=== PATIENT | male | born 1950 | race Two or more races ===

== ENCOUNTER 2021-02-24 09:39 | Inpatient (IN) ==
[2021-02-24] MEDS ORDERED: methylPREDNISolone SOD SUC 125 MG/2 ML VIAL IV STA (10:13)
[2021-02-24 10:37] LABS: Basophils # 0.1 10*3/uL (0.0-0.2); Basophils % 0.6 % (0.0-0.8); Eosinophils % 0.5 % (0.00-10.9); Hemoglobin 13.8 GM/DL (14.0-18.0); Immature Granulocytes % 0.5 %; Immature Granulocytes Absolute 0.04 #; Lymphocytes # 1.2 10*3/uL (1.4-4.0); Lymphocytes % 14.7 % (21.2-54.2); Mean Corpuscular HGB Conc 32.1 GM/DL (32-36); Mean Corpuscular Volume 96.8 FL (87-102); Mean Platelet Volume 9.7 FL (9.6-12.0); Monocytes % 11.4 % (1.7-12.7); Neutrophils % 72.3 % (38.7-73.9); Platelet Count 325 T/CUMM (130-400); Red Blood Count 4.44 MC/CUMM (3.8-5.5); Red Cell Distribution Width 14.8 % (9.3-17.3); White Blood Count 8.1 T/CUMM (4-12)
[2021-02-24 11:10] LABS: PT Patient Result 11.6 SECS (10.5-12.0); Partial Thromboplastin Time 29.3 SECS (23.8-32.1)
[2021-02-24] MEDS ORDERED: RACEPINEPHRINE 0.5 ML NEB RESP TX STA (11:14)
[2021-02-24 11:17] LABS: Osmolality,Calculated 283.1 MOS/KG (273-304); Potassium 5.1 MMOL/L (3.5-5.1)
[2021-02-24] MEDS ORDERED: DEXTROSE 50% 25 GM/50 ML SYRINGE IV PRN (15:34)
[2021-02-24] MEDS ORDERED: GLUCAGON 1 MG VIAL IM PRN (15:34)
[2021-02-24] MEDS ORDERED: MORPHINE 2 MG/1 ML SYRINGE IV PRN (15:38)
[2021-02-24] MEDS ORDERED: ONDANSETRON 4 MG/2 ML VIAL IV PRN (15:38)
[2021-02-24] MEDS: RACEPINEPHRINE 0.5 ML NEB RESP TX SCH ×2 (17:30→19:10)
[2021-02-24] MEDS: DEXTROSE 5% NACL 0.45% 1,000 ML IV SCH (19:52)
[2021-02-24] MEDS ORDERED: ENOXAPARIN 40 MG/0.4 ML SYRINGE SUBCUT SCH (21:00)
[2021-02-25] MEDS: RACEPINEPHRINE 0.5 ML NEB RESP TX SCH ×4 (00:10→20:18)
[2021-02-25] MEDS: DEXTROSE 5% NACL 0.45% 1,000 ML IV SCH ×3 (05:05→18:17)
[2021-02-25 06:53] LABS: Hematocrit 38.5 VOL% (42.0-52.0); Hemoglobin 12.6 GM/DL (14.0-18.0); Immature Granulocytes % 0.4 %; Immature Granulocytes Absolute 0.03 #; Lymphocytes % 14.6 % (21.2-54.2); Mean Corpuscular HGB Conc 32.7 GM/DL (32-36); Mean Corpuscular Volume 93.7 FL (87-102); Mean Platelet Volume 10.1 FL (9.6-12.0); Monocytes % 4.9 % (1.7-12.7); Neutrophils % 80.1 % (38.7-73.9); Platelet Count 383 T/CUMM (130-400); Red Blood Count 4.11 MC/CUMM (3.8-5.5); Red Cell Distribution Width 14.8 % (9.3-17.3)
[2021-02-25 07:01] LABS: Bilirubin,Total 0.7 MG/DL (0.20-1.00); Calcium 10.4 MG/DL (8.5-10.1); Osmolality,Calculated 279.5 MOS/KG (273-304); Potassium 3.7 MMOL/L (3.5-5.1); Risk Ratio 3.09; Total Protein 7.1 G/DL (6.4-8.2); VLDL Cholesterol 15.4 MG/DL
[2021-02-25] MEDS: PANTOPRAZOLE 40 MG TABLET PO SCH (09:28)
[2021-02-25] MEDS: NICOTINE 21 MG/24 HR PATCH TRANSDERM SCH (09:29)
[2021-02-26] MEDS: RACEPINEPHRINE 0.5 ML NEB RESP TX SCH ×4 (01:28→19:40)
[2021-02-26] MEDS: DEXTROSE 5% NACL 0.45% 1,000 ML IV SCH ×3 (02:17→17:47)
[2021-02-26 05:32] LABS: Bilirubin,Urine Negative (Negative); Blood, Urine Negative (Negative); Glucose,Urine (UA) Negative (Negative); Ketones,Urine Negative (Negative); Mucus,Urine Occasional /LPF (Occasional); Nitrite,Urine Negative (Negative); Protein,Urine Negative; RBC,Urine 2 /HPF (0-4); Squamous Epithelial Cell,Urine Occasional /HPF (0-10); Urine Appearance CLEAR (Clear); Urine Color Yellow (Yellow); Urine Specific Gravity 1.046 (1.001-1.035)
[2021-02-26 05:43] LABS: Basophils % 0.2 % (0.0-0.8); Eosinophils % 0.1 % (0.00-10.9); Hematocrit 40.9 VOL% (42.0-52.0); Hemoglobin 13.1 GM/DL (14.0-18.0); Immature Granulocytes % 0.3 %; Immature Granulocytes Absolute 0.03 #; Lymphocytes # 1.4 10*3/uL (1.4-4.0); Lymphocytes % 12.4 % (21.2-54.2); Mean Corpuscular Volume 95.3 FL (87-102); Mean Platelet Volume 11.1 FL (9.6-12.0); Monocytes % 11.2 % (1.7-12.7); Neutrophils % 75.8 % (38.7-73.9); Platelet Count 334 T/CUMM (130-400); Red Blood Count 4.29 MC/CUMM (3.8-5.5); Red Cell Distribution Width 15.2 % (9.3-17.3); White Blood Count 10.9 T/CUMM (4-12)
[2021-02-26 05:57] LABS: Calcium 10.5 MG/DL (8.5-10.1); Osmolality,Calculated 277.5 MOS/KG (273-304); Potassium 3.7 MMOL/L (3.5-5.1)
[2021-02-26] MEDS ORDERED: BUPIVACAINE MPF 0.25% 30 ML VIAL ONE (08:34)
[2021-02-26] MEDS ORDERED: LIDOCAINE 1%/EPI INJ 20 ML VIAL ONE (08:34)
[2021-02-26] MEDS: PANTOPRAZOLE 40 MG TABLET PO SCH ×2 (10:29→10:31)
[2021-02-26] MEDS: NICOTINE 21 MG/24 HR PATCH TRANSDERM SCH (10:31)
[2021-02-27] MEDS: RACEPINEPHRINE 0.5 ML NEB RESP TX SCH ×3 (00:12→15:50)
[2021-02-27] MEDS: DEXTROSE 5% NACL 0.45% 1,000 ML IV SCH ×3 (01:05→19:26)
[2021-02-27] MEDS ORDERED: BUPIVACAINE MPF 0.25% 30 ML VIAL ONE (06:25)
[2021-02-27] MEDS ORDERED: LIDOCAINE 1%/EPI INJ 20 ML VIAL ONE ×2 (06:25→06:47)
[2021-02-27 06:30] LABS: Basophils % 0.4 % (0.0-0.8); Eosinophils % 0.2 % (0.00-10.9); Hemoglobin 13.7 GM/DL (14.0-18.0); Immature Granulocytes % 0.3 %; Immature Granulocytes Absolute 0.03 #; Lymphocytes # 1.4 10*3/uL (1.4-4.0); Lymphocytes % 15.2 % (21.2-54.2); Mean Corpuscular HGB Conc 32.6 GM/DL (32-36); Mean Corpuscular Volume 94.2 FL (87-102); Monocytes % 11.9 % (1.7-12.7); Platelet Count 396 T/CUMM (130-400); Red Blood Count 4.46 MC/CUMM (3.8-5.5); Red Cell Distribution Width 14.7 % (9.3-17.3); White Blood Count 9.2 T/CUMM (4-12)
[2021-02-27] MEDS ORDERED: fentaNYL 100 MCG/2 ML VIAL ONE (06:46)
[2021-02-27] MEDS ORDERED: KETAMINE 500 MG/10 ML VIAL ONE (06:46)
[2021-02-27] MEDS ORDERED: MIDAZOLAM 2 MG/2 ML VIAL ONE (06:48)
[2021-02-27] MEDS ORDERED: propofoL 200 MG/20 ML VIAL IV ONE (06:49)
[2021-02-27] MEDS ORDERED: GLYCOPYRROLATE 0.4 MG/2 ML VIAL ONE (06:49)
[2021-02-27] MEDS ORDERED: LIDOCAINE 2% 5 ML VIAL ONE (06:49)
[2021-02-27 06:58] LABS: Calcium 10.2 MG/DL (8.5-10.1); Osmolality,Calculated 280.1 MOS/KG (273-304); Potassium 3.5 MMOL/L (3.5-5.1)
[2021-02-27] MEDS ORDERED: LIDOCAINE 4% TOP SOLN 50 ML BOTTLE ONE (07:12)
[2021-02-27] MEDS ORDERED: SEVOFLURANE 1 UNIT/15 MINUTE INH ONE (07:48)
[2021-02-27] MEDS ORDERED: ONDANSETRON 4 MG/2 ML VIAL ONE (07:48)
[2021-02-27] MEDS ORDERED: DEXAMETHASONE 4 MG/1 ML VIAL ONE (07:48)
[2021-02-27] MEDS ORDERED: TISSUE ADHESIVE 1 EACH APPLICATOR TOP ONE (08:30)
[2021-02-27] MEDS ORDERED: SUCCINYLCHOLINE 200 MG/10 ML VIAL ONE (08:38)
[2021-02-27] MEDS: PANTOPRAZOLE 40 MG TABLET PO SCH (09:59)
[2021-02-27] MEDS: NICOTINE 21 MG/24 HR PATCH TRANSDERM SCH (10:15)
[2021-02-28] MEDS: DEXTROSE 5% NACL 0.45% 1,000 ML IV SCH ×3 (03:40→20:21)
[2021-02-28 04:26] LABS: Basophils % 0.1 % (0.0-0.8); Hematocrit 40.1 VOL% (42.0-52.0); Hemoglobin 13.2 GM/DL (14.0-18.0); Immature Granulocytes % 0.4 %; Immature Granulocytes Absolute 0.05 #; Lymphocytes # 0.9 10*3/uL (1.4-4.0); Lymphocytes % 6.9 % (21.2-54.2); Mean Corpuscular HGB Conc 32.9 GM/DL (32-36); Mean Corpuscular Volume 92.8 FL (87-102); Monocytes % 9.3 % (1.7-12.7); Neutrophils % 83.3 % (38.7-73.9); Platelet Count 367 T/CUMM (130-400); Red Blood Count 4.32 MC/CUMM (3.8-5.5); Red Cell Distribution Width 14.4 % (9.3-17.3); White Blood Count 12.3 T/CUMM (4-12)
[2021-02-28 04:44] LABS: Calcium 9.8 MG/DL (8.5-10.1); Osmolality,Calculated 279.3 MOS/KG (273-304); Potassium 3.4 MMOL/L (3.5-5.1)
[2021-02-28] MEDS ORDERED: POTASSIUM CHLORIDE RIDER 20 MEQ/100 ML PREMIX IV PRN (05:46)
[2021-02-28] MEDS ORDERED: POTASSIUM CHLORIDE RIDER 10 MEQ/100 ML PREMIX IV PRN (05:50)
[2021-02-28] MEDS: OMEPRAZOLE ODT 20 MG TABLET PER TUBE SCH (09:30)
[2021-02-28] MEDS: NICOTINE 21 MG/24 HR PATCH TRANSDERM SCH (09:30)
[2021-03-01] MEDS: DEXTROSE 5% NACL 0.45% 1,000 ML IV SCH ×2 (03:26→17:15)
[2021-03-01 05:00] LABS: Basophils % 0.1 % (0.0-0.8); Eosinophils % 0.3 % (0.00-10.9); Hematocrit 39.2 VOL% (42.0-52.0); Hemoglobin 12.7 GM/DL (14.0-18.0); Immature Granulocytes % 0.2 %; Immature Granulocytes Absolute 0.02 #; Lymphocytes # 1.1 10*3/uL (1.4-4.0); Lymphocytes % 11.6 % (21.2-54.2); Mean Corpuscular HGB Conc 32.4 GM/DL (32-36); Mean Corpuscular Volume 92.9 FL (87-102); Mean Platelet Volume 10.2 FL (9.6-12.0); Monocytes % 9.2 % (1.7-12.7); Neutrophils % 78.6 % (38.7-73.9); Platelet Count 341 T/CUMM (130-400); Red Blood Count 4.22 MC/CUMM (3.8-5.5); Red Cell Distribution Width 14.6 % (9.3-17.3); White Blood Count 9.4 T/CUMM (4-12)
[2021-03-01 05:19] LABS: Calcium 9.2 MG/DL (8.5-10.1); Osmolality,Calculated 279.3 MOS/KG (273-304); Potassium 3.1 MMOL/L (3.5-5.1)
[2021-03-01] MEDS ORDERED: MAGNESIUM SULF RIDER 2 GM/50 ML PREMIX IV ONE (08:31)
[2021-03-01] MEDS: NICOTINE 21 MG/24 HR PATCH TRANSDERM SCH (08:50)
[2021-03-01] MEDS: OMEPRAZOLE ODT 20 MG TABLET PER TUBE SCH (08:50)
[2021-03-01] MEDS: POTASSIUM CHLORIDE 20 MEQ PACK PEG SCH ×3 (08:50→17:05)
[2021-03-02] MEDS: POTASSIUM CHLORIDE 20 MEQ PACK PEG SCH (00:13)
[2021-03-02 05:52] LABS: Calcium 9.9 MG/DL (8.5-10.1); Osmolality,Calculated 271.8 MOS/KG (273-304); Potassium 4.8 MMOL/L (3.5-5.1)
[2021-03-02] MEDS: OMEPRAZOLE ODT 20 MG TABLET PER TUBE SCH (09:44)
[2021-03-02] MEDS: NICOTINE 21 MG/24 HR PATCH TRANSDERM SCH (09:44)
[2021-03-02] MEDS: DEXTROSE 5% NACL 0.45% 1,000 ML IV SCH (10:48)
[2021-03-03] MEDS: NICOTINE 21 MG/24 HR PATCH TRANSDERM SCH (08:20)
[2021-03-03] MEDS: OMEPRAZOLE ODT 20 MG TABLET PER TUBE SCH (08:20)
[2021-03-03] MEDS: DEXTROSE 5% NACL 0.45% 1,000 ML IV SCH (13:55)
[2021-03-04] MEDS: OMEPRAZOLE ODT 20 MG TABLET PER TUBE SCH (11:35)
[2021-03-04] MEDS: NICOTINE 21 MG/24 HR PATCH TRANSDERM SCH (11:35)
[2021-03-05] MEDS ORDERED: MAGNESIUM CITRATE 300 ML BOTTLE PO ONE ×2 (07:09→16:30)
[2021-03-05] MEDS ORDERED: guaiFENesin/DM ER 600-30 MG TABLET PO SCH (10:30)
[2021-03-05] MEDS: NICOTINE 21 MG/24 HR PATCH TRANSDERM SCH (11:23)
[2021-03-05] MEDS: OMEPRAZOLE ODT 20 MG TABLET PER TUBE SCH (11:23)
[2021-03-05] MEDS: ALBUTEROL/IPRATROPIUM 3 ML NEB RESP TX SCH ×2 (12:45→19:40)
[2021-03-06] MEDS: ALBUTEROL/IPRATROPIUM 3 ML NEB RESP TX SCH ×4 (00:55→20:05)
[2021-03-06 05:58] LABS: Basophils % 0.3 % (0.0-0.8); Eosinophils # 0.3 10*3/uL (0.0-0.87); Eosinophils % 2.2 % (0.00-10.9); Hematocrit 39.5 VOL% (42.0-52.0); Hemoglobin 12.9 GM/DL (14.0-18.0); Immature Granulocytes % 0.4 %; Immature Granulocytes Absolute 0.06 #; Mean Corpuscular HGB Conc 32.7 GM/DL (32-36); Mean Corpuscular Volume 95.2 FL (87-102); Mean Platelet Volume 9.8 FL (9.6-12.0); Monocytes % 12.5 % (1.7-12.7); Neutrophils % 77.6 % (38.7-73.9); Platelet Count 385 T/CUMM (130-400); Red Blood Count 4.15 MC/CUMM (3.8-5.5); Red Cell Distribution Width 14.7 % (9.3-17.3); White Blood Count 14.3 T/CUMM (4-12)
[2021-03-06 06:22] LABS: Eosinophils 5 % (0-10); Hypochromasia Slight; Lymphocytes 7 % (20-55); Microcytosis Slight; Platelet Estimate Adequate; Segmented Neutrophils 74 % (50-85); Total Cells Counted 100
[2021-03-06 06:56] LABS: Calcium 9.5 MG/DL (8.5-10.1); Osmolality,Calculated 271.1 MOS/KG (273-304); Potassium 4.3 MMOL/L (3.5-5.1)
[2021-03-06] MEDS: NICOTINE 21 MG/24 HR PATCH TRANSDERM SCH (09:01)
[2021-03-06] MEDS: OMEPRAZOLE ODT 20 MG TABLET PER TUBE SCH (09:02)
[2021-03-06] MEDS: ZINC OXIDE 16% PASTE 57 GM TUBE TOP SCH (22:42)
[2021-03-07] MEDS: ALBUTEROL/IPRATROPIUM 3 ML NEB RESP TX SCH ×4 (01:30→19:45)
[2021-03-07 05:11] LABS: Basophils % 0.4 % (0.0-0.8); Eosinophils # 0.3 10*3/uL (0.0-0.87); Eosinophils % 2.4 % (0.00-10.9); Hemoglobin 11.3 GM/DL (14.0-18.0); Immature Granulocytes % 0.5 %; Immature Granulocytes Absolute 0.05 #; Lymphocytes # 0.6 10*3/uL (1.4-4.0); Lymphocytes % 5.6 % (21.2-54.2); Mean Corpuscular HGB Conc 32.3 GM/DL (32-36); Mean Corpuscular Volume 94.3 FL (87-102); Mean Platelet Volume 9.8 FL (9.6-12.0); Monocytes % 12.5 % (1.7-12.7); Neutrophils % 78.6 % (38.7-73.9); Platelet Count 371 T/CUMM (130-400); Red Blood Count 3.71 MC/CUMM (3.8-5.5); Red Cell Distribution Width 14.6 % (9.3-17.3); White Blood Count 10.5 T/CUMM (4-12)
[2021-03-07 05:45] LABS: Osmolality,Calculated 270.2 MOS/KG (273-304); Potassium 4.1 MMOL/L (3.5-5.1)
[2021-03-07 05:54] LABS: Calcium 9.1 MG/DL (8.5-10.1); Osmolality,Calculated 272.1 MOS/KG (273-304); Potassium 4.1 MMOL/L (3.5-5.1)
[2021-03-07 05:59] LABS: Eosinophils 2 % (0-10); Lymphocytes 11 % (20-55); Platelet Estimate Normal; Segmented Neutrophils 77 % (50-85); Total Cells Counted 100
[2021-03-07] MEDS: OMEPRAZOLE ODT 20 MG TABLET PER TUBE SCH (08:47)
[2021-03-07] MEDS: NICOTINE 21 MG/24 HR PATCH TRANSDERM SCH (08:47)
[2021-03-07] MEDS: ZINC OXIDE 16% PASTE 57 GM TUBE TOP SCH ×2 (08:48→21:42)
[2021-03-08] MEDS: ALBUTEROL/IPRATROPIUM 3 ML NEB RESP TX SCH ×4 (01:05→19:31)
[2021-03-08 05:46] LABS: Basophils # 0.1 10*3/uL (0.0-0.2); Basophils % 0.4 % (0.0-0.8); Eosinophils # 0.2 10*3/uL (0.0-0.87); Hemoglobin 11.6 GM/DL (14.0-18.0); Immature Granulocytes % 0.5 %; Immature Granulocytes Absolute 0.06 #; Lymphocytes # 0.6 10*3/uL (1.4-4.0); Lymphocytes % 5.3 % (21.2-54.2); Mean Corpuscular HGB Conc 33.1 GM/DL (32-36); Mean Corpuscular Volume 94.6 FL (87-102); Mean Platelet Volume 9.8 FL (9.6-12.0); Monocytes % 12.5 % (1.7-12.7); Neutrophils % 79.3 % (38.7-73.9); Platelet Count 402 T/CUMM (130-400); Red Cell Distribution Width 14.6 % (9.3-17.3); White Blood Count 11.8 T/CUMM (4-12)
[2021-03-08 06:08] LABS: Calcium 9.1 MG/DL (8.5-10.1); Osmolality,Calculated 268.2 MOS/KG (273-304); Potassium 4.2 MMOL/L (3.5-5.1)
[2021-03-08 06:16] LABS: Lymphocytes 11 % (20-55); Platelet Estimate Increased; Segmented Neutrophils 78 % (50-85); Total Cells Counted 100
[2021-03-08] MEDS: NICOTINE 21 MG/24 HR PATCH TRANSDERM SCH (08:38)
[2021-03-08] MEDS: OMEPRAZOLE ODT 20 MG TABLET PER TUBE SCH (08:39)
[2021-03-08] MEDS: ZINC OXIDE 16% PASTE 57 GM TUBE TOP SCH ×2 (08:40→21:07)
[2021-03-09] MEDS: ALBUTEROL/IPRATROPIUM 3 ML NEB RESP TX SCH ×4 (01:35→20:06)
[2021-03-09 05:38] LABS: Basophils # 0.1 10*3/uL (0.0-0.2); Basophils % 0.5 % (0.0-0.8); Eosinophils # 0.3 10*3/uL (0.0-0.87); Eosinophils % 2.4 % (0.00-10.9); Hematocrit 35.8 VOL% (42.0-52.0); Hemoglobin 11.7 GM/DL (14.0-18.0); Immature Granulocytes % 0.5 %; Immature Granulocytes Absolute 0.05 #; Lymphocytes # 0.7 10*3/uL (1.4-4.0); Lymphocytes % 6.3 % (21.2-54.2); Mean Corpuscular HGB Conc 32.7 GM/DL (32-36); Monocytes % 12.2 % (1.7-12.7); Neutrophils % 78.1 % (38.7-73.9); Platelet Count 419 T/CUMM (130-400); Red Blood Count 3.77 MC/CUMM (3.8-5.5); Red Cell Distribution Width 14.6 % (9.3-17.3); White Blood Count 10.6 T/CUMM (4-12)
[2021-03-09 06:00] LABS: Calcium 9.3 MG/DL (8.5-10.1); Osmolality,Calculated 269.1 MOS/KG (273-304)
[2021-03-09] MEDS: ZINC OXIDE 16% PASTE 57 GM TUBE TOP SCH ×2 (08:39→22:00)
[2021-03-09] MEDS: OMEPRAZOLE ODT 20 MG TABLET PER TUBE SCH (08:40)
[2021-03-09] MEDS: NICOTINE 21 MG/24 HR PATCH TRANSDERM SCH (08:40)
[2021-03-10] MEDS: ALBUTEROL/IPRATROPIUM 3 ML NEB RESP TX SCH ×4 (01:43→19:50)
[2021-03-10 05:37] LABS: Basophils # 0.1 10*3/uL (0.0-0.2); Basophils % 0.6 % (0.0-0.8); Eosinophils # 0.3 10*3/uL (0.0-0.87); Eosinophils % 2.8 % (0.00-10.9); Hematocrit 35.9 VOL% (42.0-52.0); Hemoglobin 11.6 GM/DL (14.0-18.0); Immature Granulocytes % 0.4 %; Immature Granulocytes Absolute 0.04 #; Lymphocytes # 0.7 10*3/uL (1.4-4.0); Lymphocytes % 6.9 % (21.2-54.2); Mean Corpuscular HGB Conc 32.3 GM/DL (32-36); Mean Corpuscular Volume 95.2 FL (87-102); Mean Platelet Volume 9.8 FL (9.6-12.0); Monocytes % 9.9 % (1.7-12.7); Neutrophils % 79.4 % (38.7-73.9); Platelet Count 435 T/CUMM (130-400); Red Blood Count 3.77 MC/CUMM (3.8-5.5); Red Cell Distribution Width 14.4 % (9.3-17.3); White Blood Count 10.1 T/CUMM (4-12)
[2021-03-10 06:00] LABS: Calcium 9.3 MG/DL (8.5-10.1); Osmolality,Calculated 265.4 MOS/KG (273-304); Potassium 4.1 MMOL/L (3.5-5.1)
[2021-03-10] MEDS: NICOTINE 21 MG/24 HR PATCH TRANSDERM SCH (10:23)
[2021-03-10] MEDS: ZINC OXIDE 16% PASTE 57 GM TUBE TOP SCH ×2 (10:24→21:00)
[2021-03-10] MEDS: OMEPRAZOLE ODT 20 MG TABLET PER TUBE SCH (10:26)
[2021-03-11] MEDS: ALBUTEROL/IPRATROPIUM 3 ML NEB RESP TX SCH ×4 (00:30→19:55)
[2021-03-11 05:22] LABS: Basophils # 0.1 10*3/uL (0.0-0.2); Basophils % 0.6 % (0.0-0.8); Eosinophils # 0.3 10*3/uL (0.0-0.87); Eosinophils % 2.9 % (0.00-10.9); Hematocrit 34.5 VOL% (42.0-52.0); Hemoglobin 11.1 GM/DL (14.0-18.0); Immature Granulocytes % 0.9 %; Immature Granulocytes Absolute 0.09 #; Lymphocytes # 0.7 10*3/uL (1.4-4.0); Lymphocytes % 6.4 % (21.2-54.2); Mean Corpuscular HGB Conc 32.2 GM/DL (32-36); Mean Platelet Volume 9.7 FL (9.6-12.0); Monocytes % 11.2 % (1.7-12.7); Platelet Count 474 T/CUMM (130-400); Red Blood Count 3.63 MC/CUMM (3.8-5.5); Red Cell Distribution Width 14.3 % (9.3-17.3); White Blood Count 10.2 T/CUMM (4-12)
[2021-03-11 05:49] LABS: Calcium 9.6 MG/DL (8.5-10.1); Osmolality,Calculated 267.2 MOS/KG (273-304); Potassium 4.2 MMOL/L (3.5-5.1)
[2021-03-11 05:55] LABS: Eosinophils 4 % (0-10); Hypochromasia Slight; Lymphocytes 4 % (20-55); Microcytosis Slight; Platelet Estimate Adequate; Segmented Neutrophils 83 % (50-85); Total Cells Counted 100
[2021-03-11] MEDS: OMEPRAZOLE ODT 20 MG TABLET PER TUBE SCH (09:00)
[2021-03-11] MEDS: ZINC OXIDE 16% PASTE 57 GM TUBE TOP SCH ×2 (09:01→21:49)
[2021-03-11] MEDS: NICOTINE 21 MG/24 HR PATCH TRANSDERM SCH (09:01)
[2021-03-12] MEDS: ALBUTEROL/IPRATROPIUM 3 ML NEB RESP TX SCH ×3 (00:24→13:47)
[2021-03-12] MEDS: OMEPRAZOLE ODT 20 MG TABLET PER TUBE SCH (09:09)
[2021-03-12] MEDS: NICOTINE 21 MG/24 HR PATCH TRANSDERM SCH (09:09)
[2021-03-12] MEDS: ZINC OXIDE 16% PASTE 57 GM TUBE TOP SCH (09:10)
[2021-03-12] MEDS ORDERED: LEVOFLOXACIN 500 MG TABLET PO SCH (14:30)
[2021-03-12 15:39] VITALS: BP 117/76
== END 2021-03-12 18:46 | DRG 4 ==
LOC: N.ED 09:39 → N.EDINP 15:34 → SUATTDRO 15:34 → N.2E 16:32 → N.ICU 02-27 09:27 → N.TELES 03-03 22:04
PROVIDERS: ADMIT Internal Medicine; ATTEND Internal Medicine